=== PATIENT | male | born 1950 | race Caucasian/White ===

== ENCOUNTER 2017-07-27 15:14 | Inpatient (IN) | payer OTHER ==
[~2017-07-27] VITALS: Ht 182.9 cm; Wt 80.2 kg
[~2017-07-27 15:14] MED LIST: ACCUPRIL40 MG PO; ASPIRIN PO; AUGMENTIN875 MG PO; BENICAR40 MG PO; Calan PO; DAILY VALUE1 EACH PO; ELAVIL50 MG PO; Elavil PO; HUMALOG100 UNIT/1 SC; IMITREX100 MG PO; LANTUS 10100 UNITS/ SC; LOPRESSOR50 MG PO; Lopressor PO; NAPROSYN500 MG PO; NAPROXEN250 MG PO; NEXIUM40 MG PO; NIASPAN,SLO-NI500 MG PO; OMEPRAZOLE40 M1 PO; PERCOCET 5/31 TABLET PO; TOPAMAX50 MG PO; VERAPAMIL HCL120 M1 PO; VITAMIN B-6100 MG PO; Zocor PO
[2017-07-27] MEDS ORDERED: INSULIN PUMP MC (17:59)
[2017-07-27] MEDS ORDERED: NYSTATIN15 GM TP (18:01)
[2017-07-27] MEDS ORDERED: NEURONTIN300 MG PO (18:02)
[2017-07-27] MEDS ORDERED: TOPROL XL50 MG PO (18:03)
[2017-07-27 18:04] LABS: HEMATOCRIT 38.5 % (38.0-50.0); MCH 30.3 PG (29.0-34.0); MCV 88.9 FL (86-99); MEAN PLAT.VOLUME 9.9 uM^3 (9.0-12.4); PLATELET COUNT 259 K/uL (156-360); RBC DIS.WIDTH-CV 13.3 % (11.8-14.6); RBC DIS.WIDTH-SD 43.6 % (39-53); RED BLOOD COUNT 4.33 M/uL (4.00-5.50); WHITE BLOOD COUNT 11.9 K/uL (4.1-10.2)
[2017-07-27] MEDS ORDERED: LYRICA150 MG PO (18:04)
[2017-07-27] MEDS ORDERED: COZAAR100 MG PO (18:06)
[2017-07-27 18:10] LABS: CHLORIDE 111 mEq/L (99-109); POTASSIUM 3.9 mEq/L (3.7-5.4); SODIUM 140 mEq/L (136-147)
[2017-07-27 18:12] LABS: GLUCOSE 121 mg/dL (70-99)
[2017-07-27 18:13] LABS: ANION GAP 8 MEQ/L (2-14)
[2017-07-27 18:14] LABS: TOTAL BILIRUBIN 0.3 mg/dL (0.0-1.0)
[2017-07-27 18:16] LABS: ALKALINE PHOSPHATASE 198 IU/L (3-129); GFR ESTIMATE (CALCULATED) > 59 mL/min/
[2017-07-27 18:17] LABS: UREA NITROGEN (BUN) 9 mg/dL (9-23)
[2017-07-27 21:03] VITALS: BP 142/68
[2017-07-27 21:35] VITALS: BP 142/68
[2017-07-27 22:25] LABS: POINT-OF-CARE METER ID UU14208753
[2017-07-27 23:58] VITALS: BP 142/70
[2017-07-28 04:28] VITALS: BP 119/64
[2017-07-28 06:01] LABS: POINT-OF-CARE METER ID UU14117124
[2017-07-28 06:25] LABS: HEMATOCRIT 33.3 % (38.0-50.0); MCH 29.8 PG (29.0-34.0); MCHC 33.3 G/DL (30.0-36.0); MCV 89.3 FL (86-99); MEAN PLAT.VOLUME 10.1 uM^3 (9.0-12.4); PLATELET COUNT 214 K/uL (156-360); RBC DIS.WIDTH-CV 13.4 % (11.8-14.6); RBC DIS.WIDTH-SD 44.1 % (39-53); RED BLOOD COUNT 3.73 M/uL (4.00-5.50); WHITE BLOOD COUNT 5.8 K/uL (4.1-10.2)
[2017-07-28 06:48] LABS: ANION GAP 8 MEQ/L (2-14); CHLORIDE 112 MEQ/L (99-109); GFR ESTIMATE (CALCULATED) > 59 mL/min/; GLUCOSE 233 mg/dL (70-99); POTASSIUM 4.2 MEQ/L (3.7-5.4); SAMPLE HEMOLYSIS CHECK 0; SAMPLE ICTERIC CHECK 0; SAMPLE LIPEMIA CHECK 0; SODIUM 141 MEQ/L (136-147); UREA NITROGEN (BUN) 11 mg/dL (9-23)
[2017-07-28 07:44] VITALS: BP 120/69
[2017-07-28 11:19] LABS: POINT-OF-CARE METER ID UU14208753
[2017-07-28 11:21] VITALS: BP 155/75
[2017-07-28 15:58] VITALS: BP 148/69
[2017-07-28 16:18] LABS: POINT-OF-CARE METER ID UU14188577
[2017-07-28 20:03] VITALS: BP 142/68
[2017-07-28 21:56] LABS: POINT-OF-CARE METER ID UU14117124
[2017-07-28 23:58] VITALS: BP 119/63
[2017-07-29 04:13] VITALS: BP 107/61
[2017-07-29 06:35] LABS: POINT-OF-CARE METER ID UU14117124
[2017-07-29] MEDS ORDERED: ROXICODONE5 MG PO (06:48)
[2017-07-29 07:55] VITALS: BP 110/54
== END 2017-07-29 10:44 | disposition home or self-care (01) | DRG 536 ==
LOC: EME 15:14 → EDOF 18:35 → 3EAST 18:35 → ENRESERV 18:36 → 3EAST 20:35
PROVIDERS: Hospitalist; Nurse Practitioner Family
DX: S32.591A Other specified fracture of right pubis, initial encounter for closed fracture (principal); M48.56XA Collapsed vertebra, not elsewhere classified, lumbar region, initial encounter for fracture; W01.0XXA Fall on same level from slipping, tripping and stumbling without subsequent striking against object, initial encounter; E11.40 Type 2 diabetes mellitus with diabetic neuropathy, unspecified; E11.610 Type 2 diabetes mellitus with diabetic neuropathic arthropathy; E78.00 Pure hypercholesterolemia, unspecified; K21.9 Gastro-esophageal reflux disease without esophagitis; G43.909 Migraine, unspecified, not intractable, without status migrainosus; I10 Essential (primary) hypertension; F10.21 Alcohol dependence, in remission; Z66 Do not resuscitate; Z96.41 Presence of insulin pump (external) (internal); Z79.4 Long term (current) use of insulin; Z86.73 Personal history of transient ischemic attack (TIA), and cerebral infarction without residual deficits
CPT/HCPCS: 72100; 72220; 73502; 80048; 80053; 82948; 85027; 99281; 99285; J1644; J1815; J2270

== ENCOUNTER 2017-08-11 07:47 | Inpatient (IN) | payer OTHER ==
[~2017-08-11] VITALS: Ht 182.9 cm; Wt 94.3 kg
[~2017-08-11 07:47] MED LIST changes: +COZAAR100 MG PO; +INSULIN PUMP MC; +LYRICA150 MG PO; +NEURONTIN300 MG PO; +NYSTATIN15 GM TP; +OMEPRAZOLE20 MG PO; -OMEPRAZOLE40 M1 PO; +ROXICODONE5 MG PO; +TOPROL XL50 MG PO; -VERAPAMIL HCL120 M1 PO; +VERAPAMIL HCL180 MG PO
[2017-08-11 08:22] LABS: CARBON DIOXIDE (BICARBONATE) 24.1 MEQ/L (20-31)
[2017-08-11 08:40] LABS: HEMATOCRIT 38.4 % (38.0-50.0); MCH 30.2 PG (29.0-34.0); MCHC 33.9 G/DL (30.0-36.0); MCV 89.3 FL (86-99); MEAN PLAT.VOLUME 10.9 uM^3 (9.0-12.4); RBC DIS.WIDTH-CV 14.5 % (11.8-14.6); RBC DIS.WIDTH-SD 46.7 % (39-53); WHITE BLOOD COUNT 12.1 K/uL (4.1-10.2)
[2017-08-11 08:59] LABS: ALKALINE PHOSPHATASE 200 IU/L (3-129); ANION GAP 13 MEQ/L (2-14); CHLORIDE 99 MEQ/L (99-109); DIRECT BILIRUBIN 0.1 mg/dL (0.0-0.3); GFR ESTIMATE (CALCULATED) 46 mL/min/; GLUCOSE 374 mg/dL (70-99); POTASSIUM 5.1 MEQ/L (3.7-5.4); SAMPLE HEMOLYSIS CHECK 2; SAMPLE ICTERIC CHECK 0; SAMPLE LIPEMIA CHECK 0; SODIUM 135 MEQ/L (136-147); TOTAL BILIRUBIN 0.6 MG/DL (0.0-1.0); UREA NITROGEN (BUN) 50 mg/dL (9-23)
[2017-08-11 09:21] LABS: PLATELET COUNT 292 K/uL (156-360)
[2017-08-11 09:57] LABS: ABS NEUTROPHIL COUNT 10.5; ANISOCYTOSIS 1+; EOSINOPHIL ABS CT 0; INSTRUMENT ABS NEUTROPHIL CT 9.8 K/uL; PLAT.SUFFICIENCY ADEQUATE
[2017-08-11 11:38] LABS: INTER. NORMALIZED RATIO 1.7; PROTHROMBIN TIME 18.8 SEC (10.2-12.9)
[2017-08-11 12:03] LABS: SERUM ETHYL ALCOHOL < 10 mg/dL
[2017-08-11 16:05] VITALS: BP 161/70
[2017-08-11 16:23] VITALS: BP 156/69
[2017-08-11 17:44] LABS: POINT-OF-CARE METER ID UU13113655; POINT-OF-CARE USER ID ENVKLS06
[2017-08-11 18:25] LABS: CHLORIDE 103 mEq/L (99-109); SODIUM 138 mEq/L (136-147)
[2017-08-11 18:28] LABS: GLUCOSE 359 mg/dL (70-99)
[2017-08-11 18:29] LABS: ANION GAP 11 MEQ/L (2-14)
[2017-08-11 18:30] LABS: TOTAL BILIRUBIN 0.4 mg/dL (0.0-1.0)
[2017-08-11 18:31] LABS: ALKALINE PHOSPHATASE 155 IU/L (3-129); GFR ESTIMATE (CALCULATED) 54 mL/min/
[2017-08-11 18:32] LABS: UREA NITROGEN (BUN) 48 mg/dL (9-23)
[2017-08-11 18:37] LABS: POTASSIUM 3.8 mEq/L (3.7-5.4)
[2017-08-11 18:55] LABS: POINT-OF-CARE METER ID UU13113655; POINT-OF-CARE USER ID ENVKLS06
[2017-08-11 20:01] LABS: POINT-OF-CARE METER ID UU13113675
[2017-08-11 22:30] LABS: POINT-OF-CARE METER ID UU13113675
[2017-08-12 03:25] VITALS: BP 132/60
[2017-08-12 06:24] LABS: POINT-OF-CARE METER ID UU14117124
[2017-08-12 07:57] LABS: ANION GAP 8 MEQ/L (2-14); CHLORIDE 108 MEQ/L (99-109); GFR ESTIMATE (CALCULATED) 59 mL/min/; GLUCOSE 189 mg/dL (70-99); POTASSIUM 3.6 MEQ/L (3.7-5.4); SAMPLE HEMOLYSIS CHECK 0; SAMPLE ICTERIC CHECK 0; SAMPLE LIPEMIA CHECK 0; SODIUM 142 MEQ/L (136-147); UREA NITROGEN (BUN) 40 mg/dL (9-23)
[2017-08-12 07:58] LABS: ALKALINE PHOSPHATASE 112 IU/L (3-129); TOTAL BILIRUBIN 0.4 MG/DL (0.0-1.0)
[2017-08-12 08:07] VITALS: BP 125/62
[2017-08-12 08:55] LABS: HEMATOCRIT 26.5 % (38.0-50.0); MCH 30.1 PG (29.0-34.0); MCHC 32.8 G/DL (30.0-36.0); MCV 91.7 FL (86-99); MEAN PLAT.VOLUME 9.9 uM^3 (9.0-12.4); PLATELET COUNT 232 K/uL (156-360); RBC DIS.WIDTH-CV 14.2 % (11.8-14.6); RBC DIS.WIDTH-SD 47.8 % (39-53); WHITE BLOOD COUNT 5.5 K/uL (4.1-10.2)
[2017-08-12 09:01] LABS: RED BLOOD COUNT 2.89 M/uL (4.00-5.50)
[2017-08-12 11:19] LABS: POINT-OF-CARE METER ID UU14149397
[2017-08-12 15:59] VITALS: BP 127/60
[2017-08-12 16:04] LABS: HEMATOCRIT 29.4 % (38.0-50.0); MCV 92.5 FL (86-99)
[2017-08-12 17:06] LABS: POINT-OF-CARE METER ID UU14149397
[2017-08-12 22:31] LABS: POINT-OF-CARE METER ID UU14117124
[2017-08-13 00:05] VITALS: BP 104/56
[2017-08-13 06:31] LABS: POINT-OF-CARE METER ID UU14188577
[2017-08-13 06:39] LABS: ANION GAP 11 MEQ/L (2-14); CHLORIDE 106 MEQ/L (99-109); GFR ESTIMATE (CALCULATED) > 59 mL/min/; GLUCOSE 245 mg/dL (70-99); SAMPLE HEMOLYSIS CHECK 0; SAMPLE ICTERIC CHECK 0; SAMPLE LIPEMIA CHECK 0; SODIUM 137 MEQ/L (136-147); UREA NITROGEN (BUN) 29 mg/dL (9-23)
[2017-08-13 06:41] LABS: POTASSIUM 4.5 MEQ/L (3.7-5.4)
[2017-08-13 07:18] LABS: HEMATOCRIT 30.8 % (38.0-50.0); MCH 30.2 PG (29.0-34.0); MCHC 32.5 G/DL (30.0-36.0); MCV 93.1 FL (86-99); MEAN PLAT.VOLUME 9.8 uM^3 (9.0-12.4); PLATELET COUNT 242 K/uL (156-360); RBC DIS.WIDTH-CV 13.9 % (11.8-14.6); RBC DIS.WIDTH-SD 47.4 % (39-53); RED BLOOD COUNT 3.31 M/uL (4.00-5.50); WHITE BLOOD COUNT 8.3 K/uL (4.1-10.2)
[2017-08-13 07:23] LABS: INTER. NORMALIZED RATIO 1.4; PROTHROMBIN TIME 16.5 SEC (10.2-12.9)
[2017-08-13 08:16] VITALS: BP 154/64
[2017-08-13 12:11] LABS: POINT-OF-CARE METER ID UU14208753
[2017-08-13 16:19] VITALS: BP 134/65
[2017-08-13 17:06] LABS: POINT-OF-CARE METER ID UU14188577
[2017-08-13 22:39] LABS: POINT-OF-CARE METER ID UU14117124
[2017-08-14 00:16] VITALS: BP 160/74
[2017-08-14 04:00] VITALS: BP 100/60
[2017-08-14 04:48] LABS: BASE EXCESS -10.2 mEq/L (-3 to +3); COMMENTS - BLOOD GASES A+C+; DEVICE HIGH FLW NAS CAN; METHEMOGLOBIN 1.6 % (0-1.5); O2 FLOW 15 L/MIN; PCO2 26 mm Hg (35-45); PO2 52 mm Hg (80-100); SITE RR; TOTAL RESP RATE 23 resp/min; pH 7.34 (7.35-7.45)
[2017-08-14 05:37] LABS: HEMATOCRIT 35.4 % (38.0-50.0); MCH 30.2 PG (29.0-34.0); MCHC 33.1 G/DL (30.0-36.0); MCV 91.2 FL (86-99); MEAN PLAT.VOLUME 9.8 uM^3 (9.0-12.4); RBC DIS.WIDTH-CV 13.8 % (11.8-14.6); RBC DIS.WIDTH-SD 45.6 % (39-53); RED BLOOD COUNT 3.88 M/uL (4.00-5.50); WHITE BLOOD COUNT 12.5 K/uL (4.1-10.2)
[2017-08-14 05:48] LABS: INTER. NORMALIZED RATIO 1.6; PROTHROMBIN TIME 18.2 SEC (10.2-12.9)
[2017-08-14 05:52] LABS: PLATELET COUNT 422 K/uL (156-360)
[2017-08-14 06:46] LABS: POINT-OF-CARE METER ID UU14208753
[2017-08-14 08:08] VITALS: BP 135/63
[2017-08-14 11:32] LABS: POINT-OF-CARE METER ID UU14149397
[2017-08-14 16:20] VITALS: BP 125/58
[2017-08-14 16:24] LABS: ANION GAP 17 MEQ/L (2-14); CHLORIDE 104 MEQ/L (99-109); GFR ESTIMATE (CALCULATED) > 59 mL/min/; GLUCOSE 288 mg/dL (70-99); POTASSIUM 4.6 MEQ/L (3.7-5.4); SAMPLE HEMOLYSIS CHECK 0; SAMPLE ICTERIC CHECK 0; SAMPLE LIPEMIA CHECK 0; SODIUM 136 MEQ/L (136-147); UREA NITROGEN (BUN) 26 mg/dL (9-23)
[2017-08-14 16:34] LABS: POINT-OF-CARE METER ID UU14117124
[2017-08-14 20:11] VITALS: BP 142/65
[2017-08-14 21:30] LABS: POINT-OF-CARE METER ID UU14117124
[2017-08-14 23:53] VITALS: BP 140/63
[2017-08-15] VITALS (13 sets, daily range): BP systolic 111–175; BP diastolic 42–74
[2017-08-15 06:20] LABS: POINT-OF-CARE METER ID UU14149397
[2017-08-15 06:29] LABS: HEMATOCRIT 29.2 % (38.0-50.0); MCH 30.6 PG (29.0-34.0); MCHC 33.2 G/DL (30.0-36.0); MCV 92.1 FL (86-99); MEAN PLAT.VOLUME 9.6 uM^3 (9.0-12.4); PLATELET COUNT 305 K/uL (156-360); RBC DIS.WIDTH-CV 14.1 % (11.8-14.6); RBC DIS.WIDTH-SD 47.7 % (39-53); RED BLOOD COUNT 3.17 M/uL (4.00-5.50); WHITE BLOOD COUNT 11.8 K/uL (4.1-10.2)
[2017-08-15 07:05] LABS: ANION GAP 19 MEQ/L (2-14); CHLORIDE 115 MEQ/L (99-109); GFR ESTIMATE (CALCULATED) > 59 mL/min/; GLUCOSE 351 mg/dL (70-99); POTASSIUM 4.3 MEQ/L (3.7-5.4); SAMPLE HEMOLYSIS CHECK 0; SAMPLE ICTERIC CHECK 0; SAMPLE LIPEMIA CHECK 0; SODIUM 145 MEQ/L (136-147); UREA NITROGEN (BUN) 20 mg/dL (9-23)
[2017-08-15 11:42] LABS: POINT-OF-CARE METER ID UU14117124
[2017-08-15 12:28] LABS: METHEMOGLOBIN 1.4 % (0-1.5)
[2017-08-15 12:32] LABS: PCO2 < 19 mm Hg (35-45); PO2 68 mm Hg (80-100); SITE RR
[2017-08-15 12:33] LABS: COMMENTS - BLOOD GASES A+C+; DEVICE NRB; FI02 100 %; O2 FLOW 15 L/MIN; TOTAL RESP RATE 40 resp/min; pH 7.15 (7.35-7.45)
[2017-08-15 13:03] LABS: HEMATOCRIT 34.1 % (38.0-50.0); MCH 29.8 PG (29.0-34.0); MCHC 31.1 G/DL (30.0-36.0); MCV 95.8 FL (86-99); MEAN PLAT.VOLUME 9.6 uM^3 (9.0-12.4); RBC DIS.WIDTH-CV 14.4 % (11.8-14.6); RBC DIS.WIDTH-SD 50.6 % (39-53); RED BLOOD COUNT 3.56 M/uL (4.00-5.50); WHITE BLOOD COUNT 22.1 K/uL (4.1-10.2)
[2017-08-15 13:06] LABS: PLATELET COUNT 447 K/uL (156-360)
[2017-08-15 13:21] LABS: TROP-I INTERPRETATION NEGATIVE; TROPONIN-I < 0.01 ng/mL (0.0-0.30)
[2017-08-15 13:38] LABS: ANION GAP 26 MEQ/L (2-14); CHLORIDE 116 MEQ/L (99-109); GFR ESTIMATE (CALCULATED) > 59 mL/min/; POTASSIUM 4.8 MEQ/L (3.7-5.4); SAMPLE HEMOLYSIS CHECK 0; SAMPLE ICTERIC CHECK 0; SAMPLE LIPEMIA CHECK 0; SODIUM 149 MEQ/L (136-147); UREA NITROGEN (BUN) 24 mg/dL (9-23)
[2017-08-15 13:39] LABS: GLUCOSE 419 mg/dL (70-99)
[2017-08-15 13:40] LABS: CARBON DIOXIDE (BICARBONATE) < 10.0 MEQ/L (20-31)
[2017-08-15 14:29] LABS: ADD MIUA? YES; BILIRUBIN NEGATIVE; BLOOD SMALL; COLOR YELLOW ((YELLOW)); GLUCOSE (STRIP) >=500; KETONES 80; LEUKOCYTES NEGATIVE; NITRITE NEGATIVE; PROTEIN (STRIP) 30; SPECIFIC GRAVITY 1.014 (1.000-1.030); UROBILINOGEN 0.2 MG/DL (0.2-1.0)
[2017-08-15 14:30] LABS: BASE EXCESS -20.8 mEq/L (-3 to +3); BICARBONATE 9.4 mEq/L (22-26); CARBOXY HGB 1.5 % (0-5); COMMENTS - BLOOD GASES A+C+; DEVICE 840; FI02 40 %; MODE A/C; PCO2 38 mm Hg (35-45); PO2 105 mm Hg (80-100); SITE LR
[2017-08-15 14:31] LABS: MECHANICAL RATE 12 resp/min; PEEP 14 CM/H20; TIDAL VOLUME 600 ML; TOTAL RESP RATE 16 resp/min
[2017-08-15 14:31] LABS: BACTERIA NONE SEEN /HPF; EPITHELIAL CELLS NONE SEEN /HPF; MUCUS TRACE /LPF; RED BLOOD CELLS 0-5 /HPF (0-5); UCUL ADDED? NO; WHITE BLOOD CELLS 0-5 /HPF (0-5)
[2017-08-15 14:35] LABS: METH RESISTANT S AUREUS PCR NEGATIVE (NEGATIVE)
[2017-08-15 14:38] LABS: PROBE CHECK PASS; SPECIMEN PROCESSING CONTROL PASS
[2017-08-15 15:38] LABS: ANION GAP 24 MEQ/L (2-14); CHLORIDE 116 MEQ/L (99-109); GFR ESTIMATE (CALCULATED) > 59 mL/min/; SAMPLE HEMOLYSIS CHECK 0; SAMPLE ICTERIC CHECK 0; SAMPLE LIPEMIA CHECK 0; SODIUM 147 MEQ/L (136-147); UREA NITROGEN (BUN) 24 mg/dL (9-23)
[2017-08-15 15:39] LABS: CARBON DIOXIDE (BICARBONATE) < 10.0 MEQ/L (20-31); GLUCOSE 487 mg/dL (70-99)
[2017-08-15 16:04] LABS: Estimated Average Glucose 174 mg/dL (70-123); HEMOGLOBIN A1c (GLYCOHEMOGLOB) 7.7 % HGB (Below 5.7)
[2017-08-15 20:31] LABS: ANION GAP 26 MEQ/L (2-14); CHLORIDE 113 MEQ/L (99-109); GFR ESTIMATE (CALCULATED) 59 mL/min/; POTASSIUM 4.5 MEQ/L (3.7-5.4); SAMPLE HEMOLYSIS CHECK 0; SAMPLE ICTERIC CHECK 0; SAMPLE LIPEMIA CHECK 0; SODIUM 146 MEQ/L (136-147); UREA NITROGEN (BUN) 28 mg/dL (9-23)
[2017-08-15 20:36] LABS: GLUCOSE 534 mg/dL (70-99)
[2017-08-15 20:37] LABS: CARBON DIOXIDE (BICARBONATE) < 10.0 MEQ/L (20-31)
[2017-08-16] VITALS (19 sets, daily range): BP systolic 119–176; BP diastolic 51–68
[2017-08-16 00:45] LABS: POTASSIUM 3.8 mEq/L (3.7-5.4); SODIUM 144 mEq/L (136-147)
[2017-08-16 00:48] LABS: ANION GAP 16 MEQ/L (2-14)
[2017-08-16 00:51] LABS: GFR ESTIMATE (CALCULATED) 46 mL/min/; UREA NITROGEN (BUN) 28 mg/dL (9-23)
[2017-08-16 01:03] LABS: CHLORIDE 114 mEq/L (99-109); GLUCOSE 477 mg/dL (70-99)
[2017-08-16 03:10] LABS: POINT-OF-CARE METER ID UU14174217
[2017-08-16 04:15] LABS: POINT-OF-CARE METER ID UU14174217
[2017-08-16 05:19] LABS: POINT-OF-CARE METER ID UU14314082
[2017-08-16 05:35] LABS: HEMATOCRIT 28.1 % (38.0-50.0); MCH 29.3 PG (29.0-34.0); MCHC 32.4 G/DL (30.0-36.0); MCV 90.4 FL (86-99); RBC DIS.WIDTH-CV 14.4 % (11.8-14.6); RBC DIS.WIDTH-SD 46.8 % (39-53); RED BLOOD COUNT 3.11 M/uL (4.00-5.50); WHITE BLOOD COUNT 11.6 K/uL (4.1-10.2)
[2017-08-16 05:48] LABS: ANION GAP 12 MEQ/L (2-14); CHLORIDE 113 MEQ/L (99-109); GFR ESTIMATE (CALCULATED) > 59 mL/min/; GLUCOSE 330 mg/dL (70-99); POTASSIUM 2.9 MEQ/L (3.7-5.4); SAMPLE HEMOLYSIS CHECK 0; SAMPLE ICTERIC CHECK 0; SAMPLE LIPEMIA CHECK 0; SODIUM 146 MEQ/L (136-147); UREA NITROGEN (BUN) 25 mg/dL (9-23)
[2017-08-16 06:24] LABS: POINT-OF-CARE METER ID UU14174217
[2017-08-16 06:56] LABS: PLATELET CLUMPS PRESENT - PLATELET COUNT APPEARS ADQ.
[2017-08-16 07:19] LABS: POINT-OF-CARE METER ID UU14174217
[2017-08-16 07:21] LABS: PLATELET COUNT UNABLE TO REPORT K/uL (156-360)
[2017-08-16 08:48] LABS: POINT-OF-CARE METER ID UU13113803
[2017-08-16 09:38] LABS: ANION GAP 12 MEQ/L (2-14); CHLORIDE 115 MEQ/L (99-109); GFR ESTIMATE (CALCULATED) > 59 mL/min/; POTASSIUM 2.9 MEQ/L (3.7-5.4); SAMPLE HEMOLYSIS CHECK 0; SAMPLE ICTERIC CHECK 0; SAMPLE LIPEMIA CHECK 0; SODIUM 152 MEQ/L (136-147); UREA NITROGEN (BUN) 24 mg/dL (9-23)
[2017-08-16 09:49] LABS: GLUCOSE 151 mg/dL (70-99)
[2017-08-16 10:07] LABS: POINT-OF-CARE METER ID UU13113803
[2017-08-16 11:30] LABS: GLUCOSE 51 mg/dL (70-99)
[2017-08-16 12:22] LABS: POINT-OF-CARE METER ID UU13113803
[2017-08-16 12:32] LABS: POINT-OF-CARE METER ID UU14162636
[2017-08-16 13:07] LABS: POINT-OF-CARE METER ID UU13113803
[2017-08-16 14:13] LABS: ANION GAP 11 MEQ/L (2-14); CHLORIDE 114 MEQ/L (99-109); GFR ESTIMATE (CALCULATED) > 59 mL/min/; SAMPLE HEMOLYSIS CHECK 0; SAMPLE ICTERIC CHECK 0; SAMPLE LIPEMIA CHECK 0; SODIUM 150 MEQ/L (136-147); UREA NITROGEN (BUN) 21 mg/dL (9-23)
[2017-08-16 14:16] LABS: GLUCOSE 86 mg/dL (70-99)
[2017-08-16 14:18] LABS: POINT-OF-CARE METER ID UU13113803
[2017-08-16 15:31] LABS: MAGNESIUM 1.7 mg/dl (1.3-2.7)
[2017-08-16 15:40] LABS: POINT-OF-CARE METER ID UU13113803
[2017-08-16 16:49] LABS: POINT-OF-CARE METER ID UU13113803
[2017-08-16 18:31] LABS: ANION GAP 8 MEQ/L (2-14); CHLORIDE 115 MEQ/L (99-109); MAGNESIUM 1.6 mg/dl (1.3-2.7); POTASSIUM 2.8 MEQ/L (3.7-5.4); SAMPLE HEMOLYSIS CHECK 0; SAMPLE ICTERIC CHECK 0; SAMPLE LIPEMIA CHECK 0; SODIUM 150 MEQ/L (136-147)
[2017-08-16 18:37] LABS: GFR ESTIMATE (CALCULATED) > 59 mL/min/; UREA NITROGEN (BUN) 20 mg/dL (9-23)
[2017-08-16 18:59] LABS: GLUCOSE 162 mg/dL (70-99)
[2017-08-16 19:44] LABS: POINT-OF-CARE METER ID UU13113803
[2017-08-16 21:47] LABS: POINT-OF-CARE METER ID UU13113803
[2017-08-16 23:31] LABS: POINT-OF-CARE METER ID UU13113803
[2017-08-17] VITALS (25 sets, daily range): BP systolic 108–168; BP diastolic 49–83
[2017-08-17 01:40] LABS: POINT-OF-CARE METER ID UU14314082
[2017-08-17 02:16] LABS: CHLORIDE 116 mEq/L (99-109); POTASSIUM 2.6 mEq/L (3.7-5.4); SODIUM 148 mEq/L (136-147)
[2017-08-17 02:18] LABS: GLUCOSE 146 mg/dL (70-99)
[2017-08-17 02:19] LABS: ANION GAP 8 MEQ/L (2-14)
[2017-08-17 02:21] LABS: ALKALINE PHOSPHATASE 124 IU/L (3-129); TOTAL BILIRUBIN 0.3 mg/dL (0.0-1.0)
[2017-08-17 02:22] LABS: GFR ESTIMATE (CALCULATED) > 59 mL/min/
[2017-08-17 02:23] LABS: UREA NITROGEN (BUN) 17 mg/dL (9-23)
[2017-08-17 02:56] LABS: POINT-OF-CARE METER ID UU14314082
[2017-08-17 04:57] LABS: EOSINOPHIL (%) 0.2 % (0-5); HEMATOCRIT 23.7 % (38.0-50.0); IMMATURE GRANULOCYTE COUNT 0.1 K/uL; INSTRUMENT ABS NEUTROPHIL CT 8.7 K/uL; LYMPHOCYTE COUNT 1.1 K/uL (1.0-2.8); MCHC 34.2 G/DL (30.0-36.0); MCV 87.8 FL (86-99); MONOCYTE (%) 5.2 % (3-12); MONOCYTE COUNT 0.5 K/uL (0-0.8); NEUTROPHIL (%) 83.2 % (45-76); NEUTROPHIL COUNT 8.7 K/uL (1.8-6.4); RBC DIS.WIDTH-CV 14.3 % (11.8-14.6); RBC DIS.WIDTH-SD 45.1 % (39-53); WHITE BLOOD COUNT 10.5 K/uL (4.1-10.2)
[2017-08-17 05:00] LABS: PLATELET COUNT 204 K/uL (156-360)
[2017-08-17 05:35] LABS: POINT-OF-CARE METER ID UU14314083
[2017-08-17 05:54] LABS: POINT-OF-CARE METER ID UU14314083
[2017-08-17 07:00] LABS: POINT-OF-CARE METER ID UU14314083
[2017-08-17 09:35] LABS: POINT-OF-CARE METER ID UU14314082
[2017-08-17 14:36] LABS: POINT-OF-CARE METER ID UU13113803
[2017-08-17 15:17] LABS: ANION GAP 8 MEQ/L (2-14); CHLORIDE 115 MEQ/L (99-109); GFR ESTIMATE (CALCULATED) > 59 mL/min/; GLUCOSE 179 mg/dL (70-99); MAGNESIUM 1.6 mg/dl (1.3-2.7); SAMPLE HEMOLYSIS CHECK 0; SAMPLE ICTERIC CHECK 0; SAMPLE LIPEMIA CHECK 0; SODIUM 148 MEQ/L (136-147); UREA NITROGEN (BUN) 17 mg/dL (9-23)
[2017-08-17 15:19] LABS: POTASSIUM 3.2 MEQ/L (3.7-5.4)
[2017-08-17 17:56] LABS: POINT-OF-CARE METER ID UU14314082
[2017-08-17 19:26] LABS: ANION GAP 7 MEQ/L (2-14); CHLORIDE 113 MEQ/L (99-109); GFR ESTIMATE (CALCULATED) > 59 mL/min/; GLUCOSE 146 mg/dL (70-99); SAMPLE HEMOLYSIS CHECK 0; SAMPLE ICTERIC CHECK 0; SAMPLE LIPEMIA CHECK 0; SODIUM 144 MEQ/L (136-147); UREA NITROGEN (BUN) 17 mg/dL (9-23)
[2017-08-17 19:29] LABS: MAGNESIUM 2.4 mg/dl (1.3-2.7)
[2017-08-17 21:55] LABS: POINT-OF-CARE METER ID UU14314082
[2017-08-18] VITALS (24 sets, daily range): BP systolic 111–158; BP diastolic 55–75
[2017-08-18 02:24] LABS: POINT-OF-CARE METER ID UU14208751
[2017-08-18 05:19] LABS: EOSINOPHIL (%) 1.5 % (0-5); EOSINOPHIL COUNT 0.2 K/uL (0-0.3); HEMATOCRIT 22.9 % (38.0-50.0); IMMATURE GRANULOCYTE (%) 0.8 % (0.0-0.7); IMMATURE GRANULOCYTE COUNT 0.1 K/uL; INSTRUMENT ABS NEUTROPHIL CT 9.3 K/uL; MCH 30.1 PG (29.0-34.0); MCHC 33.6 G/DL (30.0-36.0); MCV 89.5 FL (86-99); MEAN PLAT.VOLUME 10.1 uM^3 (9.0-12.4); MONOCYTE (%) 3.7 % (3-12); MONOCYTE COUNT 0.4 K/uL (0-0.8); NEUTROPHIL (%) 84.5 % (45-76); NEUTROPHIL COUNT 9.3 K/uL (1.8-6.4); PLATELET COUNT 171 K/uL (156-360); RBC DIS.WIDTH-CV 14.6 % (11.8-14.6); RBC DIS.WIDTH-SD 47.3 % (39-53); RED BLOOD COUNT 2.56 M/uL (4.00-5.50)
[2017-08-18 05:27] LABS: INTER. NORMALIZED RATIO 1.3; PROTHROMBIN TIME 15.2 SEC (10.2-12.9)
[2017-08-18 05:58] LABS: ANION GAP 8 MEQ/L (2-14); CHLORIDE 116 MEQ/L (99-109); GFR ESTIMATE (CALCULATED) > 59 mL/min/; GLUCOSE 123 mg/dL (70-99); POTASSIUM 2.9 MEQ/L (3.7-5.4); SAMPLE HEMOLYSIS CHECK 0; SAMPLE ICTERIC CHECK 0; SAMPLE LIPEMIA CHECK 0; SODIUM 148 MEQ/L (136-147); UREA NITROGEN (BUN) 17 mg/dL (9-23)
[2017-08-18 06:00] LABS: PREALBUMIN < 3.0 mg/dL (10-40)
[2017-08-18 08:18] LABS: POINT-OF-CARE METER ID UU14314082
[2017-08-18 10:43] LABS: POINT-OF-CARE METER ID UU14314083
[2017-08-18 11:21] LABS: POINT-OF-CARE METER ID UU13113803
[2017-08-18 11:21] LABS: POINT-OF-CARE METER ID UU14208751; POINT-OF-CARE USER ID 609231305
[2017-08-18 11:21] LABS: POINT-OF-CARE METER ID UU14174217
[2017-08-18 11:22] LABS: POINT-OF-CARE METER ID UU13113803
[2017-08-18 14:08] LABS: UR CREATININE CONCENTRATION 60.4 MG/DL
[2017-08-18 14:26] LABS: C DIFF TOXIN NEGATIVE (NEGATIVE)
[2017-08-18 14:44] LABS: PROBE CHECK PASS; SPECIMEN PROCESSING CONTROL PASS
[2017-08-18 15:03] LABS: POINT-OF-CARE METER ID UU14314083
[2017-08-18 19:47] LABS: ANION GAP 8 MEQ/L (2-14); CHLORIDE 116 MEQ/L (99-109); GFR ESTIMATE (CALCULATED) > 59 mL/min/ (58.99-99999); GLUCOSE 106 mg/dL (70-99); MAGNESIUM 2.2 mg/dl (1.3-2.7); POTASSIUM 3.4 MEQ/L (3.7-5.4); SAMPLE HEMOLYSIS CHECK 0; SAMPLE ICTERIC CHECK 0; SAMPLE LIPEMIA CHECK 0; SODIUM 145 MEQ/L (136-147); UREA NITROGEN (BUN) 17 mg/dL (9-23)
[2017-08-18 21:47] LABS: POINT-OF-CARE METER ID UU14314083
[2017-08-19] VITALS (22 sets, daily range): BP systolic 116–166; BP diastolic 51–93
[2017-08-19 00:07] LABS: BASE EXCESS -2.1 mEq/L (-3 to +3); CARBOXY HGB 2.3 % (0-5); METHEMOGLOBIN 1.6 % (0-1.5)
[2017-08-19 00:08] LABS: BICARBONATE 21.5 mEq/L (22-26); COMMENTS - BLOOD GASES A+C+; DEVICE VENT; FI02 30 %; MECHANICAL RATE 16 resp/min; MODE AC; PCO2 31 mm Hg (35-45); PO2 81 mm Hg (80-100); SITE RR; TOTAL RESP RATE 31 resp/min; pH 7.45 (7.35-7.45)
[2017-08-19 00:09] LABS: PEEP 8 CM/H20; TIDAL VOLUME 500 ML
[2017-08-19 01:19] LABS: DIRECT BILIRUBIN 0.4 mg/dL (0.0-0.3)
[2017-08-19 01:28] LABS: ALKALINE PHOSPHATASE 166 IU/L (3-129); TOTAL BILIRUBIN 0.5 mg/dL (0.0-1.0)
[2017-08-19 01:41] LABS: POINT-OF-CARE METER ID UU14314083
[2017-08-19 06:10] LABS: POINT-OF-CARE METER ID UU14208751
[2017-08-19 07:50] LABS: POINT-OF-CARE METER ID UU14208751
[2017-08-19 08:04] LABS: AMYLASE 86 IU/L (1-118)
[2017-08-19 08:13] LABS: LIPASE 197 U/L (1.0-51.0)
[2017-08-19 10:04] LABS: POINT-OF-CARE METER ID UU14208751
[2017-08-19 10:44] LABS: POINT-OF-CARE METER ID UU14208751
[2017-08-19 10:45] LABS: POINT-OF-CARE METER ID UU14314083
[2017-08-19 11:04] LABS: POINT-OF-CARE METER ID UU14208751
[2017-08-19 11:29] LABS: CHLORIDE 116 mEq/L (99-109)
[2017-08-19 11:30] LABS: POTASSIUM 3.2 mEq/L (3.7-5.4); SODIUM 143 mEq/L (136-147)
[2017-08-19 11:31] LABS: GLUCOSE 180 mg/dL (70-99)
[2017-08-19 11:33] LABS: ANION GAP 9 MEQ/L (2-14)
[2017-08-19 11:35] LABS: GFR ESTIMATE (CALCULATED) > 59 mL/min/ (58.99-99999)
[2017-08-19 11:36] LABS: UREA NITROGEN (BUN) 19 mg/dL (9-23)
[2017-08-19 12:15] LABS: HEMATOCRIT 24.4 % (38.0-50.0); MCHC 33.2 G/DL (30.0-36.0); MCV 90.4 FL (86-99); MEAN PLAT.VOLUME 10.6 uM^3 (9.0-12.4); PLATELET COUNT 194 K/uL (156-360); RBC DIS.WIDTH-CV 15.2 % (11.8-14.6); RBC DIS.WIDTH-SD 49.9 % (39-53); WHITE BLOOD COUNT 15.4 K/uL (4.1-10.2)
[2017-08-19 15:11] LABS: POINT-OF-CARE METER ID UU14208751
[2017-08-19 18:19] LABS: POINT-OF-CARE METER ID UU14208751
[2017-08-19 18:58] LABS: ANION GAP 8 MEQ/L (2-14); CHLORIDE 113 MEQ/L (99-109); GFR ESTIMATE (CALCULATED) > 59 mL/min/ (58.99-99999); GLUCOSE 239 mg/dL (70-99); MAGNESIUM 2.1 mg/dl (1.3-2.7); SAMPLE HEMOLYSIS CHECK 0; SAMPLE ICTERIC CHECK 0; SAMPLE LIPEMIA CHECK 0; SODIUM 141 MEQ/L (136-147); UREA NITROGEN (BUN) 20 mg/dL (9-23)
[2017-08-19 18:59] LABS: POTASSIUM 4.2 MEQ/L (3.7-5.4)
[2017-08-19 20:09] LABS: POINT-OF-CARE METER ID UU14208751
[2017-08-19 22:04] LABS: POINT-OF-CARE METER ID UU14174217
[2017-08-20] VITALS (34 sets, daily range): BP systolic 117–192; BP diastolic 47–93
[2017-08-20 02:27] LABS: POINT-OF-CARE METER ID UU14162636
[2017-08-20 05:46] LABS: CHLORIDE 113 MEQ/L (99-109); GFR ESTIMATE (CALCULATED) > 59 mL/min/ (58.99-99999); GLUCOSE 245 mg/dL (70-99); POTASSIUM 3.6 MEQ/L (3.7-5.4); SODIUM 142 MEQ/L (136-147); UREA NITROGEN (BUN) 22 mg/dL (9-23)
[2017-08-20 05:47] LABS: EOSINOPHIL (%) 5.3 % (0-5); EOSINOPHIL COUNT 0.4 K/uL (0-0.3); HEMATOCRIT 19.7 % (38.0-50.0); IMMATURE GRANULOCYTE (%) 1.3 % (0.0-0.7); IMMATURE GRANULOCYTE COUNT 0.1 K/uL; INSTRUMENT ABS NEUTROPHIL CT 5.6 K/uL; LYMPHOCYTE COUNT 0.9 K/uL (1.0-2.8); MCH 28.9 PG (29.0-34.0); MCV 90.4 FL (86-99); MEAN PLAT.VOLUME 11.4 uM^3 (9.0-12.4); MONOCYTE (%) 7.5 % (3-12); MONOCYTE COUNT 0.6 K/uL (0-0.8); NEUTROPHIL (%) 74.2 % (45-76); NEUTROPHIL COUNT 5.6 K/uL (1.8-6.4); PLATELET COUNT 139 K/uL (156-360); RBC DIS.WIDTH-SD 49.9 % (39-53); RED BLOOD COUNT 2.18 M/uL (4.00-5.50); WHITE BLOOD COUNT 7.5 K/uL (4.1-10.2)
[2017-08-20 05:56] LABS: ANION GAP 9 MEQ/L (2-14); SAMPLE HEMOLYSIS CHECK 0; SAMPLE ICTERIC CHECK 0; SAMPLE LIPEMIA CHECK 0
[2017-08-20 06:07] LABS: POINT-OF-CARE METER ID UU14162636
[2017-08-20 09:14] LABS: EOSINOPHIL (%) 5.9 % (0-5); EOSINOPHIL COUNT 0.5 K/uL (0-0.3); HEMATOCRIT 19.4 % (38.0-50.0); IMMATURE GRANULOCYTE (%) 1.7 % (0.0-0.7); IMMATURE GRANULOCYTE COUNT 0.1 K/uL; INSTRUMENT ABS NEUTROPHIL CT 5.8 K/uL; LYMPHOCYTE COUNT 0.8 K/uL (1.0-2.8); MCH 30.4 PG (29.0-34.0); MCHC 33.5 G/DL (30.0-36.0); MCV 90.7 FL (86-99); MEAN PLAT.VOLUME 11.8 uM^3 (9.0-12.4); MONOCYTE (%) 7.7 % (3-12); MONOCYTE COUNT 0.6 K/uL (0-0.8); NEUTROPHIL (%) 74.2 % (45-76); NEUTROPHIL COUNT 5.8 K/uL (1.8-6.4); PLATELET COUNT 140 K/uL (156-360); RBC DIS.WIDTH-CV 15.2 % (11.8-14.6); RBC DIS.WIDTH-SD 50.4 % (39-53); RED BLOOD COUNT 2.14 M/uL (4.00-5.50); WHITE BLOOD COUNT 7.8 K/uL (4.1-10.2)
[2017-08-20 11:38] LABS: POINT-OF-CARE METER ID UU14162636
[2017-08-20 16:14] LABS: POINT-OF-CARE METER ID UU14162636
[2017-08-20 17:51] LABS: POINT-OF-CARE METER ID UU14162636
[2017-08-20 22:20] LABS: POINT-OF-CARE METER ID UU14174217
[2017-08-20 23:23] LABS: HEMATOCRIT 28.5 % (38.0-50.0); MCH 30.8 PG (29.0-34.0); MCHC 35.1 G/DL (30.0-36.0); MCV 87.7 FL (86-99); MEAN PLAT.VOLUME 11.4 uM^3 (9.0-12.4); PLATELET COUNT 152 K/uL (156-360); RBC DIS.WIDTH-CV 14.3 % (11.8-14.6); RBC DIS.WIDTH-SD 46.1 % (39-53); RED BLOOD COUNT 3.25 M/uL (4.00-5.50); WHITE BLOOD COUNT 9.9 K/uL (4.1-10.2)
[2017-08-21] VITALS (22 sets, daily range): BP systolic 105–191; BP diastolic 55–93
[2017-08-21 01:56] LABS: POINT-OF-CARE METER ID UU14174217
[2017-08-21 04:36] LABS: EOSINOPHIL (%) 4.3 % (0-5); EOSINOPHIL COUNT 0.4 K/uL (0-0.3); HEMATOCRIT 28.2 % (38.0-50.0); IMMATURE GRANULOCYTE (%) 2.4 % (0.0-0.7); IMMATURE GRANULOCYTE COUNT 0.2 K/uL; INSTRUMENT ABS NEUTROPHIL CT 6.8 K/uL; LYMPHOCYTE COUNT 0.9 K/uL (1.0-2.8); MCH 29.7 PG (29.0-34.0); MCV 87.3 FL (86-99); MEAN PLAT.VOLUME 11.7 uM^3 (9.0-12.4); MONOCYTE (%) 10.2 % (3-12); NEUTROPHIL (%) 73.6 % (45-76); NEUTROPHIL COUNT 6.8 K/uL (1.8-6.4); NRBC (%) 0.2 /100 WBC (0-0); PLATELET COUNT 155 K/uL (156-360); RBC DIS.WIDTH-CV 14.6 % (11.8-14.6); RBC DIS.WIDTH-SD 46.8 % (39-53); RED BLOOD COUNT 3.23 M/uL (4.00-5.50); WHITE BLOOD COUNT 9.3 K/uL (4.1-10.2)
[2017-08-21 04:47] LABS: CHLORIDE 113 mEq/L (99-109)
[2017-08-21 04:48] LABS: MAGNESIUM 1.4 mg/dL (1.3-2.7); POTASSIUM 3.4 mEq/L (3.7-5.4); SODIUM 141 mEq/L (136-147)
[2017-08-21 04:50] LABS: GLUCOSE 225 mg/dL (70-99)
[2017-08-21 04:51] LABS: ANION GAP 7 MEQ/L (2-14)
[2017-08-21 04:53] LABS: GFR ESTIMATE (CALCULATED) > 59 mL/min/ (58.99-99999)
[2017-08-21 04:54] LABS: UREA NITROGEN (BUN) 21 mg/dL (9-23)
[2017-08-21 05:46] LABS: POINT-OF-CARE METER ID UU14174217
[2017-08-21 10:38] LABS: POINT-OF-CARE METER ID UU14174217
[2017-08-21 14:27] LABS: POINT-OF-CARE METER ID UU14162636; POINT-OF-CARE USER ID 612031313
[2017-08-21 17:19] LABS: POINT-OF-CARE METER ID UU14208751
[2017-08-21 23:44] LABS: POINT-OF-CARE METER ID UU14174217
[2017-08-22] VITALS (24 sets, daily range): BP systolic 107–153; BP diastolic 54–95
[2017-08-22 02:57] LABS: POINT-OF-CARE METER ID UU14162636
[2017-08-22 05:54] LABS: EOSINOPHIL (%) 2.7 % (0-5); EOSINOPHIL COUNT 0.2 K/uL (0-0.3); HEMATOCRIT 26.7 % (38.0-50.0); IMMATURE GRANULOCYTE (%) 2.5 % (0.0-0.7); IMMATURE GRANULOCYTE COUNT 0.2 K/uL; INSTRUMENT ABS NEUTROPHIL CT 6.6 K/uL; LYMPHOCYTE COUNT 0.9 K/uL (1.0-2.8); MCHC 33.3 G/DL (30.0-36.0); MCV 89.9 FL (86-99); MEAN PLAT.VOLUME 11.8 uM^3 (9.0-12.4); MONOCYTE (%) 11.4 % (3-12); NEUTROPHIL (%) 73.7 % (45-76); NEUTROPHIL COUNT 6.6 K/uL (1.8-6.4); PLATELET COUNT 180 K/uL (156-360); RBC DIS.WIDTH-CV 15.1 % (11.8-14.6); RBC DIS.WIDTH-SD 49.8 % (39-53); RED BLOOD COUNT 2.97 M/uL (4.00-5.50); WHITE BLOOD COUNT 8.9 K/uL (4.1-10.2)
[2017-08-22 06:36] LABS: POINT-OF-CARE METER ID UU14162636
[2017-08-22 06:49] LABS: ANION GAP 9 MEQ/L (2-14); CHLORIDE 109 MEQ/L (99-109); GFR ESTIMATE (CALCULATED) > 59 mL/min/ (58.99-99999); GLUCOSE 208 mg/dL (70-99); POTASSIUM 3.9 MEQ/L (3.7-5.4); SAMPLE HEMOLYSIS CHECK 0; SAMPLE ICTERIC CHECK 0; SAMPLE LIPEMIA CHECK 0; SODIUM 140 MEQ/L (136-147); UREA NITROGEN (BUN) 23 mg/dL (9-23)
[2017-08-22 10:37] LABS: POINT-OF-CARE METER ID UU14162636
[2017-08-22 14:03] LABS: POINT-OF-CARE METER ID UU14162636
[2017-08-22 17:28] LABS: POINT-OF-CARE METER ID UU14162636
[2017-08-22 20:54] LABS: POINT-OF-CARE METER ID UU14162636
[2017-08-22 22:02] LABS: POINT-OF-CARE METER ID UU14208751
[2017-08-23] VITALS (25 sets, daily range): BP systolic 126–221; BP diastolic 57–84
[2017-08-23 01:51] LABS: POINT-OF-CARE METER ID UU14162636
[2017-08-23 05:30] LABS: EOSINOPHIL (%) 2.7 % (0-5); EOSINOPHIL COUNT 0.3 K/uL (0-0.3); HEMATOCRIT 26.2 % (38.0-50.0); IMMATURE GRANULOCYTE (%) 2.8 % (0.0-0.7); IMMATURE GRANULOCYTE COUNT 0.3 K/uL; INSTRUMENT ABS NEUTROPHIL CT 6.6 K/uL; LYMPHOCYTE COUNT 0.9 K/uL (1.0-2.8); MCH 29.3 PG (29.0-34.0); MCHC 32.1 G/DL (30.0-36.0); MCV 91.3 FL (86-99); MEAN PLAT.VOLUME 11.6 uM^3 (9.0-12.4); MONOCYTE (%) 12.4 % (3-12); MONOCYTE COUNT 1.1 K/uL (0-0.8); NEUTROPHIL (%) 71.8 % (45-76); NEUTROPHIL COUNT 6.6 K/uL (1.8-6.4); RBC DIS.WIDTH-SD 50.4 % (39-53); RED BLOOD COUNT 2.87 M/uL (4.00-5.50); WHITE BLOOD COUNT 9.2 K/uL (4.1-10.2)
[2017-08-23 05:53] LABS: PLATELET COUNT 243 K/uL (156-360)
[2017-08-23 06:01] LABS: BASE EXCESS 1.4 mEq/L (-3 to +3); BICARBONATE 26.6 mEq/L (22-26); CARBOXY HGB 1.4 % (0-5); PCO2 44 mm Hg (35-45); PO2 91 mm Hg (80-100); SITE LR; pH 7.39 (7.35-7.45)
[2017-08-23 06:02] LABS: DEVICE 840; FI02 40 %; MECHANICAL RATE 10 resp/min; MODE AC; TIDAL VOLUME 750 ML; TOTAL RESP RATE 17 resp/min
[2017-08-23 06:07] LABS: ALKALINE PHOSPHATASE 324 IU/L (3-129); ANION GAP 8 MEQ/L (2-14); CHLORIDE 107 MEQ/L (99-109); GFR ESTIMATE (CALCULATED) > 59 mL/min/ (58.99-99999); GLUCOSE 143 mg/dL (70-99); MAGNESIUM 1.9 mg/dl (1.3-2.7); POTASSIUM 3.8 MEQ/L (3.7-5.4); SAMPLE HEMOLYSIS CHECK 0; SAMPLE ICTERIC CHECK 0; SAMPLE LIPEMIA CHECK 0; SODIUM 142 MEQ/L (136-147); TOTAL BILIRUBIN 1.2 MG/DL (0.0-1.0); UREA NITROGEN (BUN) 21 mg/dL (9-23)
[2017-08-23 06:09] LABS: PEEP 8 CM/H20
[2017-08-23 06:10] LABS: POINT-OF-CARE METER ID UU14162636
[2017-08-23 09:41] LABS: POINT-OF-CARE METER ID UU14162636
[2017-08-23 13:34] LABS: POINT-OF-CARE METER ID UU14162636
[2017-08-23 17:32] LABS: POINT-OF-CARE METER ID UU14314082
[2017-08-23 21:35] LABS: POINT-OF-CARE METER ID UU14208751; POINT-OF-CARE USER ID PHATLC
[2017-08-24] VITALS (23 sets, daily range): BP systolic 0–214; BP diastolic 0–104
[2017-08-24 02:07] LABS: POINT-OF-CARE METER ID UU14314082; POINT-OF-CARE USER ID PHATLC
[2017-08-24 05:35] LABS: EOSINOPHIL (%) 2.9 % (0-5); EOSINOPHIL COUNT 0.2 K/uL (0-0.3); HEMATOCRIT 24.9 % (38.0-50.0); IMMATURE GRANULOCYTE (%) 2.3 % (0.0-0.7); IMMATURE GRANULOCYTE COUNT 0.2 K/uL; INSTRUMENT ABS NEUTROPHIL CT 6.1 K/uL; MCH 29.7 PG (29.0-34.0); MCHC 32.5 G/DL (30.0-36.0); MCV 91.2 FL (86-99); MEAN PLAT.VOLUME 11.6 uM^3 (9.0-12.4); MONOCYTE COUNT 0.8 K/uL (0-0.8); NEUTROPHIL (%) 72.2 % (45-76); NEUTROPHIL COUNT 6.1 K/uL (1.8-6.4); PLATELET COUNT 315 K/uL (156-360); RBC DIS.WIDTH-CV 15.1 % (11.8-14.6); RBC DIS.WIDTH-SD 50.3 % (39-53); RED BLOOD COUNT 2.73 M/uL (4.00-5.50); WHITE BLOOD COUNT 8.4 K/uL (4.1-10.2)
[2017-08-24 06:05] LABS: ANION GAP 8 MEQ/L (2-14); CHLORIDE 108 MEQ/L (99-109); GFR ESTIMATE (CALCULATED) > 59 mL/min/ (58.99-99999); GLUCOSE 76 mg/dL (70-99); LIPASE 19 U/L (1.0-51.0); MAGNESIUM 1.9 mg/dl (1.3-2.7); POTASSIUM 3.6 MEQ/L (3.7-5.4); SAMPLE HEMOLYSIS CHECK 0; SAMPLE ICTERIC CHECK 0; SAMPLE LIPEMIA CHECK 0; SODIUM 144 MEQ/L (136-147); TRIGLYCERIDES 275 MG/DL (Normal: <150); UREA NITROGEN (BUN) 22 mg/dL (9-23)
[2017-08-24 09:38] LABS: POINT-OF-CARE METER ID UU14314083; POINT-OF-CARE USER ID PHATLC
[2017-08-24 09:50] LABS: POINT-OF-CARE METER ID UU14314083
[2017-08-24 15:01] LABS: POINT-OF-CARE METER ID UU14314082
[2017-08-24 17:54] LABS: POINT-OF-CARE METER ID UU14314082
[2017-08-24 21:13] LABS: POINT-OF-CARE METER ID UU14314082; POINT-OF-CARE USER ID PHATLC
[2017-08-24 22:58] LABS: POINT-OF-CARE METER ID UU14314082; POINT-OF-CARE USER ID PHATLC
[2017-08-25] VITALS (24 sets, daily range): BP systolic 113–196; BP diastolic 61–94
[2017-08-25 03:10] LABS: POINT-OF-CARE METER ID UU14314083; POINT-OF-CARE USER ID PHATLC
[2017-08-25 05:12] LABS: EOSINOPHIL (%) 2.3 % (0-5); EOSINOPHIL COUNT 0.2 K/uL (0-0.3); HEMATOCRIT 24.2 % (38.0-50.0); IMMATURE GRANULOCYTE (%) 1.9 % (0.0-0.7); IMMATURE GRANULOCYTE COUNT 0.2 K/uL; INSTRUMENT ABS NEUTROPHIL CT 6.6 K/uL; MCH 30.1 PG (29.0-34.0); MCHC 33.1 G/DL (30.0-36.0); MEAN PLAT.VOLUME 11.2 uM^3 (9.0-12.4); MONOCYTE (%) 11.1 % (3-12); NEUTROPHIL (%) 73.4 % (45-76); NEUTROPHIL COUNT 6.6 K/uL (1.8-6.4); PLATELET COUNT 406 K/uL (156-360); RBC DIS.WIDTH-CV 15.4 % (11.8-14.6); RBC DIS.WIDTH-SD 50.8 % (39-53); RED BLOOD COUNT 2.66 M/uL (4.00-5.50)
[2017-08-25 05:25] LABS: CHLORIDE 108 mEq/L (99-109); POTASSIUM 3.6 mEq/L (3.7-5.4); SODIUM 144 mEq/L (136-147)
[2017-08-25 05:27] LABS: MAGNESIUM 2.2 mg/dL (1.3-2.7)
[2017-08-25 05:28] LABS: ANION GAP 9 MEQ/L (2-14); GLUCOSE 181 mg/dL (70-99)
[2017-08-25 05:31] LABS: POINT-OF-CARE METER ID UU13113803; POINT-OF-CARE USER ID PHATLC
[2017-08-25 05:31] LABS: GFR ESTIMATE (CALCULATED) > 59 mL/min/ (58.99-99999)
[2017-08-25 05:32] LABS: UREA NITROGEN (BUN) 29 mg/dL (9-23)
[2017-08-25 11:25] LABS: POINT-OF-CARE METER ID UU13113803
[2017-08-25 15:39] LABS: POINT-OF-CARE METER ID UU13113803
[2017-08-25 18:34] LABS: POINT-OF-CARE METER ID UU13113803
[2017-08-25 21:17] LABS: POINT-OF-CARE METER ID UU14314083
[2017-08-26] VITALS (25 sets, daily range): BP systolic 104–181; BP diastolic 49–110
[2017-08-26 02:31] LABS: POINT-OF-CARE METER ID UU14174217
[2017-08-26 05:04] LABS: POINT-OF-CARE METER ID UU14174217
[2017-08-26 05:51] LABS: EOSINOPHIL (%) 2.7 % (0-5); EOSINOPHIL COUNT 0.2 K/uL (0-0.3); HEMATOCRIT 22.4 % (38.0-50.0); IMMATURE GRANULOCYTE (%) 1.5 % (0.0-0.7); IMMATURE GRANULOCYTE COUNT 0.1 K/uL; INSTRUMENT ABS NEUTROPHIL CT 6.6 K/uL; LYMPHOCYTE COUNT 0.9 K/uL (1.0-2.8); MCHC 32.1 G/DL (30.0-36.0); MCV 93.3 FL (86-99); MEAN PLAT.VOLUME 11.1 uM^3 (9.0-12.4); MONOCYTE (%) 9.9 % (3-12); MONOCYTE COUNT 0.9 K/uL (0-0.8); NEUTROPHIL (%) 75.9 % (45-76); NEUTROPHIL COUNT 6.6 K/uL (1.8-6.4); PLATELET COUNT 387 K/uL (156-360); RBC DIS.WIDTH-SD 53.9 % (39-53); WHITE BLOOD COUNT 8.8 K/uL (4.1-10.2)
[2017-08-26 05:57] LABS: INTER. NORMALIZED RATIO 1.3; PROTHROMBIN TIME 14.5 SEC (10.2-12.9)
[2017-08-26 06:36] LABS: ANION GAP 12 MEQ/L (2-14); CHLORIDE 108 MEQ/L (99-109); GFR ESTIMATE (CALCULATED) > 59 mL/min/ (58.99-99999); GLUCOSE 142 mg/dL (70-99); POTASSIUM 3.7 MEQ/L (3.7-5.4); SAMPLE HEMOLYSIS CHECK 0; SAMPLE ICTERIC CHECK 1; SAMPLE LIPEMIA CHECK 0; SODIUM 148 MEQ/L (136-147); UREA NITROGEN (BUN) 36 mg/dL (9-23)
[2017-08-26 09:57] LABS: POINT-OF-CARE METER ID UU14162636
[2017-08-26 12:19] LABS: ADD MIUA? YES; BILIRUBIN SMALL; BLOOD NEGATIVE; COLOR AMBER ((YELLOW)); GLUCOSE (STRIP) NEGATIVE; KETONES NEGATIVE; LEUKOCYTES NEGATIVE; NITRITE NEGATIVE; PROTEIN (STRIP) 30; SPECIFIC GRAVITY 1.026 (1.000-1.030)
[2017-08-26 12:52] LABS: RED BLOOD CELLS 0-5 /HPF (0-5); WHITE BLOOD CELLS 0-5 /HPF (0-5)
[2017-08-26 12:53] LABS: BACTERIA NONE SEEN /HPF; CASTS PRESENT /LPF; EPITHELIAL CELLS 2+ /HPF; MUCUS NONE SEEN /LPF; UCUL ADDED? NO
[2017-08-26 12:55] LABS: HYALINE CASTS TNTC /LPF
[2017-08-26 14:29] LABS: POINT-OF-CARE METER ID UU14174217
[2017-08-26 18:54] LABS: POINT-OF-CARE METER ID UU14174217
[2017-08-26 21:45] LABS: POINT-OF-CARE METER ID UU14174217; POINT-OF-CARE USER ID RADDRS44
[2017-08-27] VITALS (23 sets, daily range): BP systolic 105–199; BP diastolic 56–90
[2017-08-27 02:05] LABS: POINT-OF-CARE METER ID UU14174217; POINT-OF-CARE USER ID RADDRS44
[2017-08-27 05:38] LABS: EOSINOPHIL (%) 3.6 % (0-5); EOSINOPHIL COUNT 0.4 K/uL (0-0.3); HEMATOCRIT 25.2 % (38.0-50.0); IMMATURE GRANULOCYTE (%) 1.4 % (0.0-0.7); IMMATURE GRANULOCYTE COUNT 0.1 K/uL; INSTRUMENT ABS NEUTROPHIL CT 7.4 K/uL; LYMPHOCYTE COUNT 0.8 K/uL (1.0-2.8); MCH 30.5 PG (29.0-34.0); MCHC 32.5 G/DL (30.0-36.0); MCV 93.7 FL (86-99); MONOCYTE (%) 10.4 % (3-12); NEUTROPHIL (%) 75.8 % (45-76); NEUTROPHIL COUNT 7.4 K/uL (1.8-6.4); PLATELET COUNT 462 K/uL (156-360); RBC DIS.WIDTH-CV 16.4 % (11.8-14.6); RBC DIS.WIDTH-SD 55.5 % (39-53); RED BLOOD COUNT 2.69 M/uL (4.00-5.50); WHITE BLOOD COUNT 9.8 K/uL (4.1-10.2)
[2017-08-27 06:15] LABS: ANION GAP 11 MEQ/L (2-14); CHLORIDE 107 MEQ/L (99-109); GFR ESTIMATE (CALCULATED) > 59 mL/min/ (58.99-99999); SAMPLE HEMOLYSIS CHECK 0; SAMPLE ICTERIC CHECK 1; SAMPLE LIPEMIA CHECK 0; SODIUM 145 MEQ/L (136-147); UREA NITROGEN (BUN) 49 mg/dL (9-23)
[2017-08-27 06:17] LABS: GLUCOSE 231 mg/dL (70-99); MAGNESIUM 2.3 mg/dl (1.3-2.7)
[2017-08-27 06:57] LABS: POINT-OF-CARE METER ID UU14174217; POINT-OF-CARE USER ID RADDRS44
[2017-08-27 10:42] LABS: POINT-OF-CARE METER ID UU14174217
[2017-08-27 14:24] LABS: POINT-OF-CARE METER ID UU14314083
[2017-08-27 17:44] LABS: POINT-OF-CARE METER ID UU14174217
[2017-08-27 21:11] LABS: POINT-OF-CARE METER ID UU14314083
[2017-08-28] VITALS (26 sets, daily range): BP systolic 83–186; BP diastolic 45–80
[2017-08-28 01:35] LABS: POINT-OF-CARE METER ID UU14314083; POINT-OF-CARE USER ID ENVSME70
[2017-08-28 05:22] LABS: EOSINOPHIL COUNT 0.2 K/uL (0-0.3); HEMATOCRIT 23.6 % (38.0-50.0); IMMATURE GRANULOCYTE (%) 1.5 % (0.0-0.7); IMMATURE GRANULOCYTE COUNT 0.2 K/uL; INSTRUMENT ABS NEUTROPHIL CT 7.9 K/uL; LYMPHOCYTE COUNT 1.1 K/uL (1.0-2.8); MCHC 33.1 G/DL (30.0-36.0); MCV 90.8 FL (86-99); MONOCYTE (%) 8.1 % (3-12); MONOCYTE COUNT 0.8 K/uL (0-0.8); NEUTROPHIL (%) 77.4 % (45-76); NEUTROPHIL COUNT 7.9 K/uL (1.8-6.4); PLATELET COUNT 471 K/uL (156-360); RBC DIS.WIDTH-CV 16.2 % (11.8-14.6); RBC DIS.WIDTH-SD 53.1 % (39-53); WHITE BLOOD COUNT 10.1 K/uL (4.1-10.2)
[2017-08-28 05:24] LABS: POINT-OF-CARE METER ID UU14174217; POINT-OF-CARE USER ID 606021424
[2017-08-28 05:50] LABS: BICARBONATE 27.3 mEq/L (22-26); CARBOXY HGB 2.6 % (0-5); COMMENTS - BLOOD GASES A+C+; METHEMOGLOBIN 1.3 % (0-1.5); PCO2 35 mm Hg (35-45); PO2 60 mm Hg (80-100); SITE LR
[2017-08-28 05:51] LABS: DEVICE VENT; FI02 50 %; MECHANICAL RATE 20 resp/min; MODE A/C; PEEP 8 CM/H20; TIDAL VOLUME 600 ML; TOTAL RESP RATE 31 resp/min
[2017-08-28 06:04] LABS: ANION GAP 11 MEQ/L (2-14); CHLORIDE 111 MEQ/L (99-109); GFR ESTIMATE (CALCULATED) > 59 mL/min/ (58.99-99999); GLUCOSE 180 mg/dL (70-99); MAGNESIUM 2.3 mg/dl (1.3-2.7); SAMPLE HEMOLYSIS CHECK 0; SAMPLE ICTERIC CHECK 2; SAMPLE LIPEMIA CHECK 0; SODIUM 148 MEQ/L (136-147); UREA NITROGEN (BUN) 52 mg/dL (9-23)
[2017-08-28 06:06] LABS: POTASSIUM 2.9 MEQ/L (3.7-5.4)
[2017-08-28 10:24] LABS: POINT-OF-CARE METER ID UU14174217
[2017-08-28 14:02] LABS: POINT-OF-CARE METER ID UU14174217
[2017-08-28 14:03] LABS: BASOPHIL COUNT 0.1 K/uL (0-0.1); EOSINOPHIL (%) 2.1 % (0-5); EOSINOPHIL COUNT 0.3 K/uL (0-0.3); HEMATOCRIT 27.1 % (38.0-50.0); IMMATURE GRANULOCYTE (%) 1.8 % (0.0-0.7); IMMATURE GRANULOCYTE COUNT 0.3 K/uL; INSTRUMENT ABS NEUTROPHIL CT 11.4 K/uL; LYMPHOCYTE COUNT 1.3 K/uL (1.0-2.8); MCH 30.3 PG (29.0-34.0); MCHC 32.8 G/DL (30.0-36.0); MCV 92.2 FL (86-99); MEAN PLAT.VOLUME 10.7 uM^3 (9.0-12.4); MONOCYTE (%) 9.1 % (3-12); MONOCYTE COUNT 1.3 K/uL (0-0.8); NEUTROPHIL (%) 77.7 % (45-76); NEUTROPHIL COUNT 11.4 K/uL (1.8-6.4); RBC DIS.WIDTH-CV 16.7 % (11.8-14.6); RBC DIS.WIDTH-SD 55.1 % (39-53); RED BLOOD COUNT 2.94 M/uL (4.00-5.50); WHITE BLOOD COUNT 14.6 K/uL (4.1-10.2)
[2017-08-28 14:25] LABS: ANION GAP 15 MEQ/L (2-14); CHLORIDE 112 MEQ/L (99-109); GFR ESTIMATE (CALCULATED) > 59 mL/min/ (58.99-99999); GLUCOSE 157 mg/dL (70-99); PLATELET COUNT 641 K/uL (156-360); SAMPLE HEMOLYSIS CHECK 0; SAMPLE ICTERIC CHECK 2; SAMPLE LIPEMIA CHECK 0; SODIUM 151 MEQ/L (136-147); UREA NITROGEN (BUN) 53 mg/dL (9-23)
[2017-08-28 14:27] LABS: POTASSIUM 3.5 MEQ/L (3.7-5.4)
[2017-08-28 17:29] LABS: POINT-OF-CARE METER ID UU14174217
[2017-08-28 23:29] LABS: POINT-OF-CARE METER ID UU14314083
[2017-08-29] VITALS (23 sets, daily range): BP systolic 98–182; BP diastolic 47–76
[2017-08-29 02:40] LABS: POINT-OF-CARE METER ID UU14208751
[2017-08-29 05:56] LABS: BICARBONATE 28.5 mEq/L (22-26); CARBOXY HGB 2.1 % (0-5); METHEMOGLOBIN 1.5 % (0-1.5); PO2 70 mm Hg (80-100); pH 7.44 (7.35-7.45)
[2017-08-29 05:57] LABS: COMMENTS - BLOOD GASES A+C+; DEVICE VENT; FI02 60 %; INSPIRATION TIME 0.75 seconds; MECHANICAL RATE 20 resp/min; MODE ACVC+; PCO2 42 mm Hg (35-45); PEEP 10 CM/H20; SITE LR; TIDAL VOLUME 600 ML; TOTAL RESP RATE 29 resp/min
[2017-08-29 06:23] LABS: POINT-OF-CARE METER ID UU14208751
[2017-08-29 06:35] LABS: BASOPHIL COUNT 0.1 K/uL (0-0.1); EOSINOPHIL (%) 4.3 % (0-5); EOSINOPHIL COUNT 0.4 K/uL (0-0.3); HEMATOCRIT 23.2 % (38.0-50.0); IMMATURE GRANULOCYTE (%) 1.3 % (0.0-0.7); IMMATURE GRANULOCYTE COUNT 0.1 K/uL; INSTRUMENT ABS NEUTROPHIL CT 7.8 K/uL; LYMPHOCYTE COUNT 1.2 K/uL (1.0-2.8); MCH 29.6 PG (29.0-34.0); MCHC 31.9 G/DL (30.0-36.0); MCV 92.8 FL (86-99); MEAN PLAT.VOLUME 10.9 uM^3 (9.0-12.4); MONOCYTE (%) 7.8 % (3-12); MONOCYTE COUNT 0.8 K/uL (0-0.8); NEUTROPHIL COUNT 7.8 K/uL (1.8-6.4); PLATELET COUNT 481 K/uL (156-360); RBC DIS.WIDTH-CV 16.8 % (11.8-14.6); WHITE BLOOD COUNT 10.3 K/uL (4.1-10.2)
[2017-08-29 07:16] LABS: ANION GAP 12 MEQ/L (2-14); CHLORIDE 113 MEQ/L (99-109); GFR ESTIMATE (CALCULATED) 59 mL/min/ (58.99-99999); GLUCOSE 126 mg/dL (70-99); MAGNESIUM 2.3 mg/dl (1.3-2.7); POTASSIUM 3.6 MEQ/L (3.7-5.4); SAMPLE HEMOLYSIS CHECK 0; SAMPLE ICTERIC CHECK 2; SAMPLE LIPEMIA CHECK 0; SODIUM 150 MEQ/L (136-147); UREA NITROGEN (BUN) 62 mg/dL (9-23)
[2017-08-29 07:27] LABS: ALKALINE PHOSPHATASE 507 IU/L (3-129); TOTAL BILIRUBIN 6.9 MG/DL (0.0-1.0)
[2017-08-29 10:31] LABS: POINT-OF-CARE METER ID UU14174217
[2017-08-29 13:01] LABS: INTER. NORMALIZED RATIO 1.3; PROTHROMBIN TIME 14.4 SEC (10.2-12.9)
[2017-08-29 13:03] LABS: PTT 28.8 SEC (25-37)
[2017-08-29 13:26] LABS: ALKALINE PHOSPHATASE 525 IU/L (3-129); DIRECT BILIRUBIN 5.2 mg/dL (0.0-0.3); TOTAL BILIRUBIN 7.3 MG/DL (0.0-1.0)
[2017-08-29 18:27] LABS: POINT-OF-CARE METER ID UU14208751
[2017-08-29 21:37] LABS: POINT-OF-CARE METER ID UU14208751
[2017-08-30] VITALS (24 sets, daily range): BP systolic 95–189; BP diastolic 48–83
[2017-08-30 01:00] LABS: POINT-OF-CARE METER ID UU14208751
[2017-08-30 05:11] LABS: BASOPHIL COUNT 0.1 K/uL (0-0.1); EOSINOPHIL (%) 5.6 % (0-5); EOSINOPHIL COUNT 0.7 K/uL (0-0.3); HEMATOCRIT 25.7 % (38.0-50.0); IMMATURE GRANULOCYTE (%) 1.2 % (0.0-0.7); IMMATURE GRANULOCYTE COUNT 0.1 K/uL; INSTRUMENT ABS NEUTROPHIL CT 9.2 K/uL; MCH 29.6 PG (29.0-34.0); MCHC 33.1 G/DL (30.0-36.0); MCV 89.5 FL (86-99); MEAN PLAT.VOLUME 11.1 uM^3 (9.0-12.4); MONOCYTE (%) 7.4 % (3-12); MONOCYTE COUNT 0.9 K/uL (0-0.8); NEUTROPHIL (%) 76.7 % (45-76); NEUTROPHIL COUNT 9.2 K/uL (1.8-6.4); NRBC (%) 0.2 /100 WBC (0-0); PLATELET COUNT 502 K/uL (156-360); RBC DIS.WIDTH-CV 17.1 % (11.8-14.6); RBC DIS.WIDTH-SD 54.3 % (39-53); RED BLOOD COUNT 2.87 M/uL (4.00-5.50)
[2017-08-30 05:54] LABS: POINT-OF-CARE METER ID UU14314082
[2017-08-30 06:32] LABS: ALKALINE PHOSPHATASE 577 IU/L (3-129); ANION GAP 12 MEQ/L (2-14); CHLORIDE 114 MEQ/L (99-109); GFR ESTIMATE (CALCULATED) > 59 mL/min/ (58.99-99999); GLUCOSE 121 mg/dL (70-99); POTASSIUM 3.1 MEQ/L (3.7-5.4); SAMPLE HEMOLYSIS CHECK 0; SAMPLE ICTERIC CHECK 2; SAMPLE LIPEMIA CHECK 0; SODIUM 151 MEQ/L (136-147); TOTAL BILIRUBIN 7.6 MG/DL (0.0-1.0); UREA NITROGEN (BUN) 64 mg/dL (9-23)
[2017-08-30 08:32] LABS: POINT-OF-CARE METER ID UU14208751
[2017-08-30 12:00] LABS: MAGNESIUM 2.3 mg/dl (1.3-2.7)
[2017-08-30 12:03] LABS: POINT-OF-CARE METER ID UU13113803
[2017-08-30 17:54] LABS: POINT-OF-CARE METER ID UU14174217
[2017-08-31] VITALS (23 sets, daily range): BP systolic 82–178; BP diastolic 41–94
[2017-08-31 00:05] LABS: POINT-OF-CARE METER ID UU14174217
[2017-08-31 06:20] LABS: ANION GAP 12 MEQ/L (2-14); CHLORIDE 112 MEQ/L (99-109); GFR ESTIMATE (CALCULATED) 59 mL/min/ (58.99-99999); GLUCOSE 233 mg/dL (70-99); MAGNESIUM 2.4 mg/dl (1.3-2.7); POTASSIUM 3.6 MEQ/L (3.7-5.4); SAMPLE HEMOLYSIS CHECK 0; SAMPLE ICTERIC CHECK 2; SAMPLE LIPEMIA CHECK 0; SODIUM 147 MEQ/L (136-147); UREA NITROGEN (BUN) 77 mg/dL (9-23)
[2017-08-31 06:29] LABS: POINT-OF-CARE METER ID UU14174217
[2017-08-31 08:04] LABS: BASE EXCESS -0.3 mEq/L (-3 to +3); CARBOXY HGB 1.7 % (0-5); COMMENTS - BLOOD GASES A+C+; DEVICE 840; FI02 60 %; METHEMOGLOBIN 1.9 % (0-1.5); PCO2 37 mm Hg (35-45); PO2 86 mm Hg (80-100); SITE RR; pH 7.42 (7.35-7.45)
[2017-08-31 08:05] LABS: INSPIRATION TIME 0.7 seconds; MECHANICAL RATE 20 resp/min; MODE AC/VC+; PEEP 10 CM/H20; TIDAL VOLUME 600 ML; TOTAL RESP RATE 38 resp/min
[2017-08-31 12:39] LABS: POINT-OF-CARE METER ID UU14208751
[2017-08-31 18:39] LABS: POINT-OF-CARE METER ID UU14314082
[2017-09-01] VITALS (23 sets, daily range): BP systolic 97–196; BP diastolic 53–89
[2017-09-01 05:34] LABS: BASOPHIL COUNT 0.1 K/uL (0-0.1); EOSINOPHIL (%) 10.4 % (0-5); EOSINOPHIL COUNT 1.4 K/uL (0-0.3); HEMATOCRIT 27.7 % (38.0-50.0); IMMATURE GRANULOCYTE (%) 1.9 % (0.0-0.7); IMMATURE GRANULOCYTE COUNT 0.3 K/uL; INSTRUMENT ABS NEUTROPHIL CT 9.4 K/uL; MCH 29.5 PG (29.0-34.0); MCHC 30.7 G/DL (30.0-36.0); MCV 96.2 FL (86-99); MONOCYTE (%) 8.3 % (3-12); MONOCYTE COUNT 1.1 K/uL (0-0.8); NEUTROPHIL (%) 71.3 % (45-76); NEUTROPHIL COUNT 9.4 K/uL (1.8-6.4); PLATELET COUNT 458 K/uL (156-360); RBC DIS.WIDTH-CV 17.4 % (11.8-14.6); RBC DIS.WIDTH-SD 61.2 % (39-53); RED BLOOD COUNT 2.88 M/uL (4.00-5.50); WHITE BLOOD COUNT 13.2 K/uL (4.1-10.2)
[2017-09-01 06:06] LABS: ALKALINE PHOSPHATASE 672 IU/L (3-129); ANION GAP 13 MEQ/L (2-14); CHLORIDE 110 MEQ/L (99-109); GFR ESTIMATE (CALCULATED) 59 mL/min/ (58.99-99999); GLUCOSE 170 mg/dL (70-99); MAGNESIUM 2.4 mg/dl (1.3-2.7); POTASSIUM 3.4 MEQ/L (3.7-5.4); SAMPLE HEMOLYSIS CHECK 0; SAMPLE ICTERIC CHECK 2; SAMPLE LIPEMIA CHECK 1; SODIUM 148 MEQ/L (136-147); TOTAL BILIRUBIN 7.9 MG/DL (0.0-1.0); UREA NITROGEN (BUN) 77 mg/dL (9-23)
[2017-09-01 12:12] LABS: POINT-OF-CARE METER ID UU14314082
[2017-09-01 18:27] LABS: POINT-OF-CARE METER ID UU14162636
[2017-09-01 21:40] LABS: POINT-OF-CARE METER ID UU14314082
[2017-09-01 23:49] LABS: POINT-OF-CARE METER ID UU14314082
[2017-09-02] VITALS (16 sets, daily range): BP systolic 58–182; BP diastolic 34–80
[2017-09-02 05:46] LABS: POINT-OF-CARE METER ID UU14314082
[2017-09-02 06:42] LABS: BASOPHIL COUNT 0.1 K/uL (0-0.1); EOSINOPHIL (%) 2.2 % (0-5); EOSINOPHIL COUNT 0.3 K/uL (0-0.3); HEMATOCRIT 25.3 % (38.0-50.0); IMMATURE GRANULOCYTE (%) 2.5 % (0.0-0.7); IMMATURE GRANULOCYTE COUNT 0.3 K/uL; INSTRUMENT ABS NEUTROPHIL CT 9.6 K/uL; LYMPHOCYTE COUNT 0.8 K/uL (1.0-2.8); MCH 30.3 PG (29.0-34.0); MCV 94.8 FL (86-99); MEAN PLAT.VOLUME 11.3 uM^3 (9.0-12.4); MONOCYTE (%) 6.9 % (3-12); MONOCYTE COUNT 0.8 K/uL (0-0.8); NEUTROPHIL (%) 81.1 % (45-76); NEUTROPHIL COUNT 9.6 K/uL (1.8-6.4); NRBC (%) 0.3 /100 WBC (0-0); PLATELET COUNT 371 K/uL (156-360); RBC DIS.WIDTH-CV 17.2 % (11.8-14.6); RBC DIS.WIDTH-SD 58.4 % (39-53); RED BLOOD COUNT 2.67 M/uL (4.00-5.50); WHITE BLOOD COUNT 11.8 K/uL (4.1-10.2)
[2017-09-02 07:08] LABS: ALKALINE PHOSPHATASE 680 IU/L (3-129); ANION GAP 12 MEQ/L (2-14); CHLORIDE 109 MEQ/L (99-109); GFR ESTIMATE (CALCULATED) 59 mL/min/ (58.99-99999); GFR ESTIMATE (CALCULATED) > 59 mL/min/ (58.99-99999); MAGNESIUM 2.3 mg/dl (1.3-2.7); POTASSIUM 2.9 MEQ/L (3.7-5.4); SAMPLE HEMOLYSIS CHECK 0; SAMPLE ICTERIC CHECK 2; SAMPLE LIPEMIA CHECK 0; SODIUM 150 MEQ/L (136-147); UREA NITROGEN (BUN) 65 mg/dL (9-23); UREA NITROGEN (BUN) 68 mg/dL (9-23)
[2017-09-02 07:11] LABS: GLUCOSE 266 mg/dL (70-99); GLUCOSE 279 mg/dL (70-99); TOTAL BILIRUBIN 10.3 MG/DL (0.0-1.0)
[2017-09-02 09:12] LABS: BASE EXCESS -1.5 mEq/L (-3 to +3); BICARBONATE 27.7 mEq/L (22-26); CARBOXY HGB 2.7 % (0-5); METHEMOGLOBIN 2.5 % (0-1.5); PCO2 76 mm Hg (35-45); PO2 56 mm Hg (80-100)
[2017-09-02 09:13] LABS: COMMENTS - BLOOD GASES +C; DEVICE BAG; FI02 100 %; O2 FLOW 20 L/MIN; SITE RR; TOTAL RESP RATE 18 resp/min; pH 7.17 (7.35-7.45)
[2017-09-02 09:14] LABS: PEEP 10 CM/H20
[2017-09-02 09:18] LABS: POINT-OF-CARE METER ID UU14314082
[2017-09-02 09:30] LABS: BASE EXCESS 3.8 mEq/L (-3 to +3); BICARBONATE 31.5 mEq/L (22-26); METHEMOGLOBIN 2.4 % (0-1.5); PO2 52 mm Hg (80-100)
[2017-09-02 09:31] LABS: COMMENTS - BLOOD GASES +C; DEVICE PB840; FI02 100 %; MECHANICAL RATE 30 resp/min; MODE ACVC+; PCO2 67 mm Hg (35-45); SITE LR; TOTAL RESP RATE 30 resp/min
[2017-09-02 09:32] LABS: INSPIRATION TIME 0.8 seconds; PEEP 10 CM/H20; TIDAL VOLUME 500 ML
[2017-09-02 09:33] LABS: pH 7.28 (7.35-7.45)
[2017-09-02 09:36] LABS: HEMATOCRIT 27.2 % (38.0-50.0); MCH 29.8 PG (29.0-34.0); MCHC 30.9 G/DL (30.0-36.0); MCV 96.5 FL (86-99); MEAN PLAT.VOLUME 11.3 uM^3 (9.0-12.4); NRBC (%) 1.1 /100 WBC (0-0); PLATELET COUNT 416 K/uL (156-360); RBC DIS.WIDTH-CV 17.3 % (11.8-14.6); RBC DIS.WIDTH-SD 60.7 % (39-53); RED BLOOD COUNT 2.82 M/uL (4.00-5.50); WHITE BLOOD COUNT 17.1 K/uL (4.1-10.2)
[2017-09-02 09:41] LABS: INTER. NORMALIZED RATIO 1.3; PROTHROMBIN TIME 14.5 SEC (10.2-12.9)
[2017-09-02 09:44] LABS: PTT 33.1 SEC (25-37)
[2017-09-02 09:47] LABS: CHLORIDE 107 mEq/L (99-109); POTASSIUM 3.3 mEq/L (3.7-5.4); SODIUM 156 mEq/L (136-147)
[2017-09-02 09:49] LABS: GLUCOSE 332 mg/dL (70-99)
[2017-09-02 09:50] LABS: ANION GAP 22 MEQ/L (2-14)
[2017-09-02 09:53] LABS: ALKALINE PHOSPHATASE 690 IU/L (3-129); GFR ESTIMATE (CALCULATED) 43 mL/min/ (58.99-99999)
[2017-09-02 09:54] LABS: UREA NITROGEN (BUN) 70 mg/dL (9-23)
[2017-09-02 09:57] LABS: TROP-I INTERPRETATION NEGATIVE; TROPONIN-I 0.24 ng/mL (0.0-0.30)
== END 2017-09-02 09:54 | DRG 3 ==
LOC: EME 07:47 → SDC 17:31 → ENRESERV 19:06 → 2SOUTH 19:06 → 4WEST 19:06 → 3EAST 19:06 → ENRESERV 08-12 02:29 → 3EAST 08-12 03:24 → ENRESERV 08-15 12:41 → 4WEST 08-15 12:45
PROVIDERS: Emergency Medicine; Hospitalist; Internal Medicine; Internal Medicine Critical Care Medicine; Specialist; Surgery
PROC: 0DNU0ZZ Release Omentum, Open Approach (ICD-10-PCS; principal; 2017-08-11)
PROC: 30233K1 Transfusion of Nonautologous Frozen Plasma into Peripheral Vein, Percutaneous Approach (ICD-10-PCS; 2017-08-11)
PROC: 30233N1 Transfusion of Nonautologous Red Blood Cells into Peripheral Vein, Percutaneous Approach (ICD-10-PCS; 2017-08-11)
PROC: 05HM33Z Insertion of Infusion Device into Right Internal Jugular Vein, Percutaneous Approach (ICD-10-PCS; 2017-08-16)
PROC: 5A1955Z Respiratory Ventilation, Greater than 96 Consecutive Hours (ICD-10-PCS; 2017-08-18)
PROC: 0CJS8ZZ Inspection of Larynx, Via Natural or Artificial Opening Endoscopic (ICD-10-PCS; 2017-08-22)
PROC: 0BH17EZ Insertion of Endotracheal Airway into Trachea, Via Natural or Artificial Opening (ICD-10-PCS; 2017-08-22)
PROC: 0B113F4 Bypass Trachea to Cutaneous with Tracheostomy Device, Percutaneous Approach (ICD-10-PCS; 2017-08-26)
PROC: B544ZZA Ultrasonography of Left Jugular Veins, Guidance (ICD-10-PCS; 2017-08-31)
PROC: 05HN33Z Insertion of Infusion Device into Left Internal Jugular Vein, Percutaneous Approach (ICD-10-PCS; 2017-08-31)
PROC: 02HV33Z Insertion of Infusion Device into Superior Vena Cava, Percutaneous Approach (ICD-10-PCS; 2017-09-02)
DX: A41.9 Sepsis, unspecified organism (principal); K56.609 Unspecified intestinal obstruction, unspecified as to partial versus complete obstruction; I46.9 Cardiac arrest, cause unspecified; J80 Acute respiratory distress syndrome; J69.0 Pneumonitis due to inhalation of food and vomit; N17.9 Acute kidney failure, unspecified; G92 Toxic encephalopathy; J96.21 Acute and chronic respiratory failure with hypoxia; J96.22 Acute and chronic respiratory failure with hypercapnia; Z99.11 Dependence on respirator [ventilator] status; E10.10 Type 1 diabetes mellitus with ketoacidosis without coma; I10 Essential (primary) hypertension; E10.649 Type 1 diabetes mellitus with hypoglycemia without coma; J15.9 Unspecified bacterial pneumonia; J41.1 Mucopurulent chronic bronchitis; K56.52 Intestinal adhesions [bands] with complete obstruction; E10.610 Type 1 diabetes mellitus with diabetic neuropathic arthropathy; E10.51 Type 1 diabetes mellitus with diabetic peripheral angiopathy without gangrene; E10.42 Type 1 diabetes mellitus with diabetic polyneuropathy; E10.319 Type 1 diabetes mellitus with unspecified diabetic retinopathy without macular edema; K21.9 Gastro-esophageal reflux disease without esophagitis; Z79.4 Long term (current) use of insulin; G89.29 Other chronic pain; E78.5 Hyperlipidemia, unspecified; D68.9 Coagulation defect, unspecified; E87.6 Hypokalemia; E87.1 Hypo-osmolality and hyponatremia; E46 Unspecified protein-calorie malnutrition; E86.1 Hypovolemia; I25.10 Atherosclerotic heart disease of native coronary artery without angina pectoris; E87.70 Fluid overload, unspecified; E83.51 Hypocalcemia; D64.9 Anemia, unspecified; K56.7 Ileus, unspecified; Z68.45 Body mass index [BMI] 70 or greater, adult; E87.0 Hyperosmolality and hypernatremia; R17 Unspecified jaundice; D72.819 Decreased white blood cell count, unspecified; E86.0 Dehydration; E88.09 Other disorders of plasma-protein metabolism, not elsewhere classified; Z96.41 Presence of insulin pump (external) (internal); N17.0 Acute kidney failure with tubular necrosis; T50.1X5A Adverse effect of loop [high-ceiling] diuretics, initial encounter; F41.9 Anxiety disorder, unspecified; M51.26 Other intervertebral disc displacement, lumbar region; B96.1 Klebsiella pneumoniae [K. pneumoniae] as the cause of diseases classified elsewhere; R26.9 Unspecified abnormalities of gait and mobility; E78.00 Pure hypercholesterolemia, unspecified; Z89.421 Acquired absence of other right toe(s); Z86.73 Personal history of transient ischemic attack (TIA), and cerebral infarction without residual deficits; Z90.49 Acquired absence of other specified parts of digestive tract; M12.9 Arthropathy, unspecified; Z87.891 Personal history of nicotine dependence
CPT/HCPCS: 36600; 70551; 71010; 71250; 71275; 74000; 74176; 74181; 76000; 76705; 76937; 80048; 80048 91; 80053; 80076; 81003; 82010; 82040; 82150; 82330; 82436; 82570; 82803; 82948; 83036; 83605; 83690; 83735; 83935; 84100; 84133; 84134; 84145 90; 84300; 84478; 84484; 84999; 85014; 85018; 85025; 85025 91; 85027; 85610; 85730; 86141; 86850; 86900; 86901; 86920; 87040; 87070; 87077; 87106; 87186; 87205; 87493; 87641; 93005; 94002; 94003; 94640; 94760; 94799; 99202; 99281; 99285; C1751; C1753; C1769; C1894; C9113; G0480; J0131; J0171; J0295; J0330; J0360; J0610; J1100; J1170; J1650; J1815; J1940; J1956; J2060; J2250; J2270; J2405; J2543; J2704; J2710; J2765; J3010; J3370; J3475; J3480; J7030; J7040; J7050; J7070; J7120; P9016; P9017; P9047; S0028